=== PATIENT | male | born 1960 | race Caucasian/White ===

== ENCOUNTER 2016-08-14 12:34 | Emergency (ER) | payer OTHER ==
[~2016-08-14] VITALS: Ht 170.2 cm; Wt 55.8 kg
[2016-08-14 13:30] LABS: BASOPHIL % 0 % (0-2); PLATELET COUNT 120 x10^3mcL (130-400)
[2016-08-14 13:51] LABS: ALKALINE PHOSPHATASE 76 U/L (46-116); ALT/SGPT 145 U/L (16-63); AST/SGOT 46 U/L (15-37); BILIRUBIN TOTAL 1.7 mg/dL (0.20-1.00); CALCIUM 8.7 mg/dL (8.5-10.1); CARBON DIOXIDE 21.1 mmol/L (21-32); CREATININE SERUM 1.2 mg/dL (0.7-1.3); GFR1 > 60 mL/min; GLUCOSE SERUM 382 mg/dL (74-106); HDL CHOLESTEROL 57 mg/dL (40-60); MAGNESIUM 1.9 mg/dL (1.8-2.4); T4(THYROXINE) 8.6 ug/dL (4.7-13.3); TOTAL PROTEIN, SERUM 6.5 g/dL (6.4-8.2)
[2016-08-14 13:53] LABS: CHOLESTEROL 231 mg/dL (<200)
[2016-08-14 13:56] LABS: CHLORIDE SERUM 103 mmol/L (98-107); POTASSIUM SERUM 4.1 mmol/L (3.5-5.1); SODIUM SERUM 135 mmol/L (136-145)
[2016-08-14 14:28] LABS: microscopic required? YES; urine erythrocyte 1+ (NEGATIVE)
[2016-08-14 14:48] LABS: AMPHETAMINE QUAL UR NONE DETECTED (NEG <=1000)
[2016-08-14 17:49] VITALS: BP 130/72
== END 2016-08-14 17:49 | disposition home or self-care (01) ==
LOC: ED 12:34
PROVIDERS: Emergency Medicine
DX: G71.0 Muscular dystrophy (principal); M48.06 Spinal stenosis, lumbar region; M51.36 Other intervertebral disc degeneration, lumbar region; E11.9 Type 2 diabetes mellitus without complications; F17.200 Nicotine dependence, unspecified, uncomplicated; E46 Unspecified protein-calorie malnutrition; I45.10 Unspecified right bundle-branch block; F12.90 Cannabis use, unspecified, uncomplicated; Z21 Asymptomatic human immunodeficiency virus [HIV] infection status
CPT/HCPCS: 80307; 82962; 83880; G0480; J1815; J7030

== ENCOUNTER 2016-09-14 12:25 | Emergency (ER) | payer OTHER ==
[~2016-09-14] VITALS: Ht 170.2 cm; Wt 54.9 kg
[2016-09-14 14:33] VITALS: BP 152/100
== END 2016-09-14 14:32 | disposition home or self-care (01) ==
LOC: ED 12:25
DX: S01.81XA Laceration without foreign body of other part of head, initial encounter (principal); X58.XXXA Exposure to other specified factors, initial encounter; R07.89 Other chest pain; Y93.9 Activity, unspecified; Y99.8 Other external cause status; Y92.89 Other specified places as the place of occurrence of the external cause; M19.90 Unspecified osteoarthritis, unspecified site

== ENCOUNTER 2016-09-24 11:53 | Inpatient (IN) | payer OTHER ==
[~2016-09-24] VITALS: Ht 172.7 cm; Wt 71.1 kg
[2016-09-24 14:15] LABS: BASOPHIL % 0.1 % (0-2); PLATELET COUNT 189 x10^3mcL (130-400); RED CELL DISTRIBUTION WIDTH 14.4 % (11.5-14.5)
[2016-09-24 14:31] LABS: BILIRUBIN TOTAL 1.38 mg/dL (0.20-1.00); C REACTIVE PROTEIN 1.7 mg/dL (<=0.9); CALCIUM 7.8 mg/dL (8.5-10.1); CARBON DIOXIDE 14.4 mmol/L (21-32); POTASSIUM SERUM 3.9 mmol/L (3.5-5.1); TOTAL PROTEIN, SERUM 6.8 g/dL (6.4-8.2)
[2016-09-24 14:33] LABS: ALBUMIN 3.3 g/dL (3.4-5.0); CREATININE SERUM 7.5 mg/dL (0.7-1.3)
[2016-09-24 15:06] LABS: T3 TOTAL 0.69 ng/mL
[2016-09-24 15:25] LABS: CK-MB 1.9 ng/mL (0-3.6)
[2016-09-24 15:34] LABS: FREE T4 1.23 ng/dL (0.76-1.46); FREE THYROXINE INDEX 2.8 ug/dL (1.4-4.5); T4(THYROXINE) 9.3 ug/dL (4.7-13.3)
[2016-09-24 16:07] LABS: ERYTHROCYTE SED RATE 20 mm/hr (0-20)
[2016-09-24 16:18] VITALS: BP 94/56
[2016-09-24] MEDS ORDERED: HYDROCHLOROTHIA25 MG PO (16:24)
[2016-09-24] MEDS ORDERED: MORPHINE SULFAT30 M6 PO (16:24)
[2016-09-24] MEDS ORDERED: MORPHINE SULFAT15 M7 PO (16:24)
[2016-09-24] MEDS ORDERED: METFORMIN HCL1000 MG PO (16:25)
[2016-09-24] MEDS ORDERED: RANITIDINE HYD150 M2 PO (16:28)
[2016-09-24 17:23] LABS: CALCIUM 6.9 mg/dL (8.5-10.1); POTASSIUM SERUM 3.5 mmol/L (3.5-5.1)
[2016-09-24 17:37] LABS: CARBON DIOXIDE 8.4 mmol/L (21-32); CREATININE SERUM 6.6 mg/dL (0.7-1.3)
[2016-09-24 17:41] VITALS: BP 94/56
[2016-09-24 19:50] VITALS: BP 106/64
[2016-09-24 23:09] VITALS: BP 90/48
[2016-09-25] VITALS (13 sets, daily range): BP systolic 11–137; BP diastolic 47–84
[2016-09-25 05:33] LABS: PLATELET COUNT 216 x10^3mcL (130-400)
[2016-09-25 05:51] LABS: RED CELL DISTRIBUTION WIDTH 14.6 % (11.5-14.5)
[2016-09-25 05:56] LABS: MAGNESIUM 2.9 mg/dL (1.8-2.4); PHOSPHOROUS 8.2 mg/dL (2.5-4.9)
[2016-09-25 06:11] LABS: CARBON DIOXIDE 5.3 mmol/L (21-32)
[2016-09-25 06:12] LABS: CREATININE SERUM 6.6 mg/dL (0.7-1.3)
[2016-09-25 12:38] LABS: GFR1 9 mL/min; GLUCOSE SERUM 243 mg/dL (74-106)
[2016-09-25] MEDS ORDERED: MELOXICAM15 M1 PO (12:43)
[2016-09-25] MEDS ORDERED: TRUVADA 200 MG1 EACH PO (12:46)
[2016-09-25] MEDS ORDERED: NORVIR100 M2 PO (12:46)
[2016-09-25] MEDS ORDERED: REYATAZ300 MG PO (12:47)
[2016-09-25 12:50] LABS: CHLORIDE SERUM 89 mmol/L (98-107); POTASSIUM SERUM 4.4 mmol/L (3.5-5.1); SODIUM SERUM 128 mmol/L (136-145)
[2016-09-25 13:01] LABS: CARBON DIOXIDE < 5.0 mmol/L (21-32)
[2016-09-25 13:02] LABS: CREATININE SERUM 6.6 mg/dL (0.7-1.3)
[2016-09-25 13:07] LABS: LIPASE 237 IU/L (73-393)
[2016-09-25 13:09] LABS: AMYLASE 263 U/L (25-115)
[2016-09-25 13:25] LABS: BAND NEUTROPHIL 6 % (0-10); MONOCYTE 9 % (0-7); SEGMENTED NEUTROPHILS 77 % (37-75)
[2016-09-25 13:26] LABS: PLATELET MORPHOLOGY PLATELETS NORMAL; rbc morphology (normal/abnorm) ABNORMAL (NORMAL)
[2016-09-25 14:33] LABS: UA SPECIFIC GRAVITY >=1.030 (1.005-1.035); microscopic required? YES; urine erythrocyte 2+ (NEGATIVE)
[2016-09-25 14:42] LABS: AMPHETAMINE QUAL UR NONE DETECTED (NEG <=1000)
[2016-09-25 15:01] LABS: PLATELET COUNT 197 x10^3mcL (130-400)
[2016-09-25 15:11] LABS: RED CELL DISTRIBUTION WIDTH 14.6 % (11.5-14.5)
[2016-09-25 15:29] LABS: BAND NEUTROPHIL 8 % (0-10); BASOPHIL 0 % (0-2); MONOCYTE 8 % (0-7); SEGMENTED NEUTROPHILS 77 % (37-75); rbc morphology (normal/abnorm) ABNORMAL (NORMAL)
[2016-09-25 19:20] LABS: CALCIUM 6.9 mg/dL (8.5-10.1)
[2016-09-25 19:23] LABS: CREATININE SERUM 6.7 mg/dL (0.7-1.3)
[2016-09-25 19:33] LABS: CARBON DIOXIDE 4.9 mmol/L (21-32)
[2016-09-26] VITALS (21 sets, daily range): BP systolic 74–121; BP diastolic 47–66; Ht 172.7 cm; Wt 71.1 kg
[2016-09-26 01:04] LABS: PLATELET COUNT 141 x10^3mcL (130-400)
[2016-09-26 01:10] LABS: RED CELL DISTRIBUTION WIDTH 14.6 % (11.5-14.5)
[2016-09-26 01:18] LABS: CALCIUM 6.7 mg/dL (8.5-10.1); POTASSIUM SERUM 3.3 mmol/L (3.5-5.1)
[2016-09-26 01:29] LABS: CARBON DIOXIDE 6.7 mmol/L (21-32)
[2016-09-26 01:30] LABS: CREATININE SERUM 6.4 mg/dL (0.7-1.3)
[2016-09-26 02:00] LABS: BAND NEUTROPHIL 5 % (0-10); BASOPHIL 0 % (0-2); MONOCYTE 3 % (0-7); SEGMENTED NEUTROPHILS 89 % (37-75)
[2016-09-26 02:02] LABS: PLATELET MORPHOLOGY LARGE PLATELET SEEN; rbc morphology (normal/abnorm) ABNORMAL (NORMAL)
[2016-09-26 05:38] LABS: PLATELET COUNT 135 x10^3mcL (130-400); RED CELL DISTRIBUTION WIDTH 14.3 % (11.5-14.5)
[2016-09-26 06:15] LABS: CALCIUM 6.4 mg/dL (8.5-10.1); MAGNESIUM 2.3 mg/dL (1.8-2.4); PHOSPHOROUS 6.4 mg/dL (2.5-4.9)
[2016-09-26 06:26] LABS: CARBON DIOXIDE 8.9 mmol/L (21-32); POTASSIUM SERUM 2.9 mmol/L (3.5-5.1)
[2016-09-26 06:27] LABS: CREATININE SERUM 6.5 mg/dL (0.7-1.3)
[2016-09-26 07:35] LABS: BAND NEUTROPHIL 6 % (0-10); BASOPHIL 0 % (0-2); MONOCYTE 3 % (0-7); SEGMENTED NEUTROPHILS 86 % (37-75); rbc morphology (normal/abnorm) ABNORMAL (NORMAL)
[2016-09-26 07:36] LABS: burr cell (echinocyte) 1+
[2016-09-26 13:37] LABS: CALCIUM 6.2 mg/dL (8.5-10.1); CARBON DIOXIDE 11.4 mmol/L (21-32); POTASSIUM SERUM 3.3 mmol/L (3.5-5.1)
[2016-09-26 13:40] LABS: CREATININE SERUM 6.5 mg/dL (0.7-1.3)
[2016-09-26 18:35] LABS: CALCIUM 6.3 mg/dL (8.5-10.1); CARBON DIOXIDE 13.9 mmol/L (21-32); POTASSIUM SERUM 3.2 mmol/L (3.5-5.1)
[2016-09-26 18:37] LABS: CREATININE SERUM 6.5 mg/dL (0.7-1.3)
[2016-09-27] VITALS (17 sets, daily range): BP systolic 81–112; BP diastolic 52–70
[2016-09-27 01:21] LABS: CALCIUM 6.2 mg/dL (8.5-10.1); CARBON DIOXIDE 20.9 mmol/L (21-32); POTASSIUM SERUM 3.2 mmol/L (3.5-5.1)
[2016-09-27 01:22] LABS: CREATININE SERUM 4.2 mg/dL (0.7-1.3)
[2016-09-27 06:59] LABS: CARBON DIOXIDE 24.8 mmol/L (21-32); MAGNESIUM 1.7 mg/dL (1.8-2.4); POTASSIUM SERUM 3.4 mmol/L (3.5-5.1)
[2016-09-27 07:14] LABS: CREATININE SERUM 4.5 mg/dL (0.7-1.3)
[2016-09-27 07:36] LABS: PLATELET COUNT 78 x10^3mcL (130-400)
[2016-09-27 08:50] LABS: BAND NEUTROPHIL 22 % (0-10); MONOCYTE 27 % (0-7); SEGMENTED NEUTROPHILS 46 % (37-75)
[2016-09-27 08:51] LABS: PLATELET MORPHOLOGY PLATELETS DECREASED; rbc morphology (normal/abnorm) ABNORMAL (NORMAL)
[2016-09-28] VITALS: BP 114/67
[2016-09-28 02:10] VITALS: BP 114/66
[2016-09-28 03:49] VITALS: BP 115/65
[2016-09-28 04:00] VITALS: BP 117/67
[2016-09-28 06:00] VITALS: BP 101/68
[2016-09-28 07:40] VITALS: BP 106/63
== END 2016-09-28 12:00 | disposition expired | DRG 890 ==
LOC: ED 11:53 → IC 15:13 → DU 15:13 → IC 16:06 → DU 17:50 → IC 18:07
PROVIDERS: Family Medicine; Internal Medicine; Specialist; ADMIT Family Medicine
PROC: 5A1945Z Respiratory Ventilation, 24-96 Consecutive Hours (ICD-10-PCS; principal; 2016-09-25)
PROC: 0BH17EZ Insertion of Endotracheal Airway into Trachea, Via Natural or Artificial Opening (ICD-10-PCS; 2016-09-25)
PROC: 02HV33Z Insertion of Infusion Device into Superior Vena Cava, Percutaneous Approach (ICD-10-PCS; 2016-09-25)
PROC: B548ZZA Ultrasonography of Superior Vena Cava, Guidance (ICD-10-PCS; 2016-09-25)
PROC: 05HN33Z Insertion of Infusion Device into Left Internal Jugular Vein, Percutaneous Approach (ICD-10-PCS; 2016-09-26)
DX: B20 Human immunodeficiency virus [HIV] disease (principal); J96.20 Acute and chronic respiratory failure, unspecified whether with hypoxia or hypercapnia; A41.9 Sepsis, unspecified organism; N17.0 Acute kidney failure with tubular necrosis; R65.21 Severe sepsis with septic shock; K55.9 Vascular disorder of intestine, unspecified; G93.41 Metabolic encephalopathy; K21.9 Gastro-esophageal reflux disease without esophagitis; D68.69 Other thrombophilia; E11.51 Type 2 diabetes mellitus with diabetic peripheral angiopathy without gangrene; E87.6 Hypokalemia; G89.29 Other chronic pain; M54.5 Low back pain; E87.2 Acidosis; E83.39 Other disorders of phosphorus metabolism; F17.210 Nicotine dependence, cigarettes, uncomplicated; B18.2 Chronic viral hepatitis C; E83.42 Hypomagnesemia; M19.90 Unspecified osteoarthritis, unspecified site; E86.0 Dehydration; E11.65 Type 2 diabetes mellitus with hyperglycemia; Z53.29 Procedure and treatment not carried out because of patient's decision for other reasons; J44.9 Chronic obstructive pulmonary disease, unspecified; N18.9 Chronic kidney disease, unspecified; I12.9 Hypertensive chronic kidney disease with stage 1 through stage 4 chronic kidney disease, or unspecified chronic kidney disease; E87.1 Hypo-osmolality and hyponatremia; Z91.14 Patient's other noncompliance with medication regimen; Z78.1 Physical restraint status; Z90.49 Acquired absence of other specified parts of digestive tract; Z79.84 Long term (current) use of oral hypoglycemic drugs; Z79.899 Other long term (current) drug therapy
CPT/HCPCS: 36556; 36600; 82962; 83880; 84439; A4628; B4164; J0461; J1170; J1642; J1644; J1720; J1815; J1940; J2060; J2250; J2270; J2370; J2405; J2543; J2704; J3411; J3475; J3480; J3490; J7030; J7040; J7050; J7620; J7633; Q0092